=== PATIENT | female | born 1990 | race Caucasian/White ===

== ENCOUNTER 2019-07-10 10:04 | Emergency (ER) | payer OTHER ==
[~2019-07-10] VITALS: Ht 157.5 cm; Wt 56.8 kg
[2019-07-10] MEDS ORDERED: NS 1,000 ML IV ONE (10:15)
[2019-07-10 10:18] VITALS: BP 129/80
[2019-07-10 10:51] LABS: BASO # 0.1 10^3/uL (0.0-0.2); BASO % 0.5 % (0.0-1.0); EOS # 0.1 10^3/uL (0.0-0.5); EOS % 0.7 % (0.0-3.0); HEMATOCRIT 34.7 % (36.0-47.0); HEMOGLOBIN 11.9 g/dl (12.0-15.5); LYMPH # 1.8 10^3/uL (1.5-5.0); LYMPH % 14.7 % (24.0-44.0); MEAN CORPUSCULAR HEMOGLOBIN 32.3 pg (27.0-33.0); MEAN CORPUSCULAR HGB CONC 34.3 g/dl (32.0-36.5); MEAN CORPUSCULAR VOLUME 94.3 fl (80.0-96.0); MONO # 0.9 10^3/uL (0.0-0.8); MONO % 7.1 % (0.0-5.0); NEUTROPHILS # 9.3 10^3/uL (1.5-8.5); NEUTROPHILS % 75.6 % (36.0-66.0); PLATELET COUNT, AUTOMATED 300 10^3/uL (150-450); RED BLOOD COUNT 3.68 10^6/uL (4.00-5.40); WHITE BLOOD COUNT 12.3 10^3/uL (4.0-10.0)
[2019-07-10 11:22] LABS: ALBUMIN 3.1 GM/DL (3.2-5.2); ALT/SGPT 12 U/L (12-78); BILIRUBIN,TOTAL 0.2 MG/DL (0.2-1.0); BLOOD UREA NITROGEN 8 MG/DL (7-18); CALCIUM LEVEL 8.8 MG/DL (8.5-10.1); CARBON DIOXIDE LEVEL 24 MEQ/L (21-32); CHLORIDE LEVEL 108 MEQ/L (98-107); CREATININE FOR GFR 0.39 MG/DL (0.55-1.30); GLOMERULAR FILTRATION RATE > 60.0 (>60); GLUCOSE, FASTING 81 MG/DL (70-100); SODIUM LEVEL 138 MEQ/L (136-145); TOTAL PROTEIN 6.4 GM/DL (6.4-8.2)
[2019-07-10] MEDS ORDERED: PRENTAB9 PO (11:29)
[2019-07-10] MEDS ORDERED: TUMS750C5 PO (11:29)
[2019-07-10] MEDS ORDERED: ACET-683 PO (11:29)
--- NOTE | 2019-07-10 17:22 | ECGEPIP ---
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
== END 2019-07-10 11:24 | disposition admitted as inpatient to this hospital (09) ==
LOC: M ED 10:04 → EDBD 10:04 → M ED 11:24
DX: O26.893 Other specified pregnancy related conditions, third trimester (principal); R55 Syncope and collapse; O28.9 Unspecified abnormal findings on antenatal screening of mother; Z3A.28 28 weeks gestation of pregnancy; Z79.899 Other long term (current) drug therapy

== ENCOUNTER 2019-07-10 11:03 | Outpatient (CLI) | payer OTHER ==
[~2019-07-10] VITALS: Ht 154.9 cm; Wt 57.0 kg
[2019-07-10 11:20] VITALS: BP 110/66
[2019-07-10] MEDS ORDERED: PRENTAB9 PO (11:29)
[2019-07-10] MEDS ORDERED: ACET-683 PO (11:29)
[2019-07-10] MEDS ORDERED: TUMS750C5 PO (11:29)
[2019-07-10 12:33] VITALS: BP 114/66
[2019-07-10 13:01] VITALS: BP 107/59
--- NOTE | 2019-07-10 13:30 | IPNPDOC ---
Text Note Date of Service The patient was seen on 07/10/19. NOTE Triage Note Samantha is a 29yo with SIUP at 27w5d who presented to the ER via ambulance after having a near syncopal episode on . She notes walking up a set of stairs and at the top feeling lightheaded, vision went blurry and she felt hot, so she sat against a wall. Never lost consciousness. She received IV fluids in the ER and CBC/CMP were drawn which were grossly normal, an EKG was done which was also wnl. She as brought up to L&D for monitoring given her gestational age and the fact that when she was in the ER she endorsed not feeling as much movement as usual. By the time she was on L&D she was feeling good movement. No ctx. No LOF. No vaginal bleeding. No CP/SOB. Vitals wnl, afebrile General: WDWN, resting comfortably sitting up in bed Abdomen: soft, gravid, NTTP Extremities: no edema of BLE Cat I FHRT with mod jerald, +accels, -decels [place]: no ctx H/H 11.9/34.7 Assessment: Samantha is a 29yo with SIUP at 27w5d who presented to the ER via ambulance after having a near syncopal episode with reassuring assessment for her and fetus. Vitals wnl, benign exam. Normal CBC/CMP and EKG. Cat I FHRT. Patient feels much improved. Plan: -discharge to home -keep next routine OB appt at 32wk -encouraged excellent hydration and if patient feels lightheaded with activity or especially showering in the future, she needs to sit down and equilibrate prior to continuing what she is doing so that she doesn't have syncope -return precautions discussed MD LISA Chong Fishbone I+O VS, Antonietta I+O Vital Signs Date Time Temp Pulse Resp B/P (MAP) Pulse Ox O2 Delivery O2 Flow Rate FiO2 07/10/19 12:33 76 20 114/66 (82) 07/10/19 11:30 99 Room Air 07/10/19 11:19 99.3 Lashell Gilbert MD Jul 10, 2019 13:30
== END 2019-07-10 13:22 | disposition home or self-care (01) ==
LOC: M LDO 11:03
PROVIDERS: ATTEND Obstetrics & Gynecology
DX: O26.892 Other specified pregnancy related conditions, second trimester (principal); Z3A.27 27 weeks gestation of pregnancy; R55 Syncope and collapse; O36.8120 Decreased fetal movements, second trimester, not applicable or unspecified; Z79.899 Other long term (current) drug therapy

== ENCOUNTER 2019-09-26 15:19 | Inpatient (IN) | payer OTHER ==
[~2019-09-26] VITALS: Ht 152.4 cm; Wt 63.1 kg
[2019-09-26] VITALS (10 sets, daily range): BP systolic 120–178; BP diastolic 65–101
[~2019-09-26 15:19] MED LIST: ACET-683 PO; PRENTAB9 PO; TUMS750C5 PO
[2019-09-26] MEDS ORDERED: LACTATED RINGER'S 1000 ML IV STA (15:53)
[2019-09-26] MEDS ORDERED: LR 1,000 ML IV SCH (16:00)
[2019-09-26] MEDS ORDERED: BUTORPHANOL 2 MG/ML INJ (J0595) IV PRN (16:30)
[2019-09-26] MEDS ORDERED: diphenhydrAMINE 25MG CAP PO PRN (16:30)
[2019-09-26] MEDS ORDERED: PROMETHAZINE INJ 25 MG/ML VIAL (J2550) IV PRN (16:30)
[2019-09-26] MEDS ORDERED: CALCIUM CARBONATE 500 MG CHEW U/D PO PRN (16:30)
[2019-09-26] MEDS ORDERED: MOM 30ML SUSPENSION UDC PO PRN (16:30)
[2019-09-26] MEDS ORDERED: SIMETHICONE 80 MG CHEW TAB PO PRN (16:30)
[2019-09-26 16:35] LABS: BASO # 0.1 10^3/uL (0.0-0.2); BASO % 0.5 % (0.0-1.0); EOS % 0.3 % (0.0-3.0); HEMOGLOBIN 14.1 g/dl (12.0-15.5); LYMPH % 21.2 % (24.0-44.0); MEAN CORPUSCULAR HEMOGLOBIN 32.8 pg (27.0-33.0); MEAN CORPUSCULAR HGB CONC 35.3 g/dl (32.0-36.5); MONO # 0.9 10^3/uL (0.0-0.8); MONO % 6.5 % (0.0-5.0); NEUTROPHILS # 9.8 10^3/uL (1.5-8.5); NEUTROPHILS % 70.1 % (36.0-66.0); PLATELET COUNT, AUTOMATED 249 10^3/uL (150-450); WHITE BLOOD COUNT 13.9 10^3/uL (4.0-10.0)
--- NOTE | 2019-09-26 16:39 | HPEPDOC ---
Obstetrical History & Physical General Date of Admission September 26, 2019 at 15:49 History of Present Illness Patient is a 29yo at 38.6wks by LMP c/w 12wk US. C/o ctx q5min since 11am. No LOF or VB. Good FM. No headache or visual changes. Chief Complaint: Contractions, term Information Provided By: Patient Care Care: Good Care Dating Final EDC: October 04, 2019 Final EDC by: LMP Antepartum Course Height (inches): 61 Pre- weight (lbs.): 107 Admission Weight (lbs.): 141 Change in Weight (lbs.): 26 Past Medical History Past Obstetrical History : Past Obstetrical History: Multigravida Type of Delivery: Spontaneous Vaginal Del. 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 History: No pertinent history Past Medical History Medical History None Surgical History: [place] teeth Family History Significant Family History: No pertinent family hx Social History Marital Status: Family situation: Spouse/partner deployed Psychosocial History: No pertinent psych hx * Smoker: non-smoker Alcohol: Denies Drugs: denies Abuse Violence Screening Have you been hit/kicked/slapp: No Have you been sexually assault: No Imunizations Tdap status: current Influenza Status: current Allergies Coded Allergies: No Known Allergies (Unverified , 07/10/19) Medications Scheduled No.137/Iron/Folic Acd ( Vitamin Tablet) 1 Each Tablet, 1 TAB PO DAILY Scheduled PRN Acetaminophen (Acetaminophen) 500 Mg Tablet, 1 TAB PO Q6H PRN for DISCOMFORT Calcium Carbonate (Tums) 300 Mg Tab.chew, 2 TAB PO Q6HP PRN for INDIGESTION Physical Examination Physical Examination GENERAL: Alert and oriented times three. BREAST: . ABDOMEN: Gravid and non-tender to touch. FETUS: Is vertex (VTX) by sterile vaginal examination (SVE), fetus is about 3200gm by David. HEART RATE: Regular rate and rhythm. LUNGS: Clear to auscultation (CTA). EXTREMITIES: No edema. Laboratory Data 24H LABS Laboratory Tests 2 09/26/19 15:54: Serology Scanned Report Hepatitis B Testing Urine Culture: No Growth Pertinent Laboratoy Data Blood Type: O- RBC Antibody Screen: Negative HIV: Negative Hepatitis B: Negative Rapid Plasma Reagin: Nonreactive Rubella: Immune Varicella: Immune Chlamydia/Gonorrhea: Negative Group B Streptococcus: Negative Cystic Fibrosis: Negative Glucose Tolerance Test: 147 (80,167,146,100) Anatomy Ultrasound Ultrasound Date: May 16, 2019 Placenta Location: Anterior Normal Anatomy: Yes Placenta Previa: No Estimated Weight (grams): 300 Vaginal Examination Dilation: 8 cm Effacement: 100% Station: 0 Cervical Consistency: Soft Cervical Position: Middle Presentation: Cephalic presentation Assessment Heart Rate (FHR): 130 Variability: Moderate Accelerations: Present Decelerations: None Tocometer Contractions: Yes Frequency: every 2-5 min. Strength: palpated as moderate Multi-drug resistant Organism: No history of MDRO Assessment/Plan Assessment Patient is a 29yo at 38.6wks by LMP c/w 12wk US with ctx. Admit for labor and expect delivery by . Pain management per patient preference, which was discussed with her. I discussed risks of with patient of failure with section, distress, bleeding, infection, , vaginal or perineal or neighboring organ tear. Currently, fetus is reassuring. GBS is negative, no need for antibiotics. Plan Admit and orient. 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 Diet: Clear. Group B Streptococcus (GBS) negative. Labs and intravenous (IV) per unit protocol. Counseled on Pitocin augmentation only if neeeded. Lactated Ringers (LR): Bolus 500 mL, then at 125 mL/hr. Anticipate normal spontaneous delivery (). C-S as appropriate. Pain mgt per patient desires. Rebecca Taveras MD September 26, 2019 16:39
--- NOTE | 2019-09-26 17:11 | IPNPDOC ---
Text Note Date of Service The patient was seen on 09/26/19. NOTE Pt tolerating painful ctx. Some bloody show. VS WNL SVE 9/100/0 AROM clear FHT: category 1, 140s, reactive, no decels, ctx q2-3min A/P: Fetus reassuring. Expect fairly soon. VS,Fishbone, I+O VS, Fishbone, I+O Laboratory Tests 09/26/19 16:14 Rebecca Taveras MD September 26, 2019 17:11
[2019-09-26] MEDS ORDERED: OXYTOCIN DRIP 30 UNITS in IV 1 EA IV SCH ×2 (17:55→18:30)
[2019-09-26] MEDS ORDERED: METHYLERGONOVINE MALEATE 0.2 MG TAB PO PRN (18:00)
[2019-09-26] MEDS ORDERED: ANUSOL HC CREAM 30GM TOP PRN (18:00)
[2019-09-26] MEDS ORDERED: MEASLES,MUMPS,RUBELLA VACCINE INJ (MMR-II) (90707) SC SCH (18:00)
[2019-09-26] MEDS ORDERED: ONDANSETRON 4MG/2ML VIAL IV PRN (18:00)
[2019-09-26] MEDS ORDERED: RHOGAM 300 MCG (1500 IU) INJ (J2790) IM SCH (18:00)
[2019-09-26] MEDS ORDERED: DIBUCAINE 1% OINTMENT 30GM TOP PRN (18:00)
--- NOTE | 2019-09-26 18:02 | DNPDOC ---
[facility] Delivery Note Delivery Note DATE OF DELIVERY: 09/26/2019 PREDELIVERY DIAGNOSIS: 38-6/7 weeks' gestation and labor. POST DELIVERY DIAGNOSIS: Delivered. PROCEDURE: Spontaneous vaginal delivery. 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 Taveras ANESTHESIA: None. ESTIMATED BLOOD LOSS: 250 mL. FINDINGS: 6 pound 14 ounce 3110gm girl , Score 8/9, nuchal cord times 1. DELIVERY SUMMARY: Patient is a 29-year-old 3 now para 2 who was admitted to labor and delivery for active labor for 6hours. Patient AROM clear around 1700. Baby girl head was delivered without difficulty over intact perineum in YOSSI position at 1735. The nose and mouth were bulb suctioned. x1 tight nuchal cord was noted. The shoulders were then delivered through the NC without difficulty. Infant was handed on mother's belly. Cord was then clamped x2 and cut after pulsation. Pitocin bolus was started. Perineum and vagina was inspected and found to have no laceration. The placenta was then delivered at 1742 spontaneously intact. Cord had a 3 vessel cord. EBL was 250mL. The vagina and perineum were reinspected and no further lacerations were found and hemostasis was good. Fundus was firm. Patient tolerated delivery well. Rebecca Taveras MD September 26, 2019 18:00
[2019-09-26] MEDS ORDERED: OXYTOCIN INJ 10 UNITS/ML VIAL (J2590) As Ordered ONE (18:58)
[2019-09-26] MEDS: IBUPROFEN 800 MG TAB PO PRN (19:51)
[2019-09-26] MEDS: ACETAMINOPHEN 500 MG TAB PO PRN (19:51)
[2019-09-26] MEDS: DOCUSATE SODIUM 100 MG CAP PO SCH (21:11)
[2019-09-27] MEDS: ACETAMINOPHEN 500 MG TAB PO PRN ×2 (01:53→08:20)
[2019-09-27] MEDS: IBUPROFEN 800 MG TAB PO PRN ×3 (03:58→21:36)
[2019-09-27 06:00] VITALS: BP 117/58
[2019-09-27] MEDS: DOCUSATE SODIUM 100 MG CAP PO SCH ×2 (08:19→21:32)
[2019-09-27] MEDS: PRENATAL VITAMINS CHEWABLE TABLET PO SCH (08:19)
--- NOTE | 2019-09-27 10:09 | IPNPDOC ---
Progress Note Date of Service: September 27, 2019 Day#: 1 Progress Note SUBJECT: Patient is a 29-year-old 3 now Para 2 status post uncomplicated spontaneous vaginal delivery without laceration, doing well day # 1. She has been ambulating, voiding spontaneously without issue and tolerating regular diet. Breast feeding without issue. Reports lochia is like a normal period. Patient is ambulating well. Reports some cramping with . Denies any pain. OBJECTIVE: VITAL SIGNS: Within normal limits, afebrile. GENERAL: No acute distress HEENT: MMM BREAST: Nontender, no erythema CARDIOVASCULAR EXAMINATION: RRR RESPIRATORY EXAMINATION: Bilaterally clear ABDOMINAL EXAMINATION: Soft, appropriate tenderness, nondistended, fundus -2 PERINEUM: Intact, minimal lochia EXTREMITIES: no edema, nontender ASSESSMENT: Patient is a 29-year-old 3 now Para 2 status post uncomplicated spontaneous vaginal delivery without laceration, doing well day # 1. Vitals within normal limits, afebrile, hemodynamically stable with no evidence of infection. PLAN: 1. Continue care. 2. Tylenol and Motrin for pain. 3. Encourage breast feeding and ambulation. VS, I&O, 24H, Fishbone Laboratory Data 24H LABS Laboratory Tests 2 09/26/19 15:54: Serology Scanned Report Hepatitis B Testing 09/26/19 16:14: Immature Granulocyte % (Auto) 1.4, Neutrophils (%) (Auto) 70.1H, Lymphocytes (%) (Auto) 21.2L, Monocytes (%) (Auto) 6.5H, Eosinophils (%) (Auto) 0.3, Basophils (%) (Auto) 0.5, Neutrophils # (Auto) 9.8H, Lymphocytes # (Auto) 3.0, Monocytes # (Auto) 0.9H, Eosinophils # (Auto) 0.0, Basophils # (Auto) 0.1, Nucleated Red Blood Cells % (auto) 0.0, Syphilis Serology NONREACTIVE CBC/BMP Laboratory Tests 09/26/19 16:14 Rebecca Taveras MD September 26, 2019 18:04
[2019-09-27 18:00] VITALS: BP 120/67
[2019-09-28 06:40] VITALS: BP 118/70
--- NOTE | 2019-09-28 08:28 | IPNPDOC ---
Progress Note Date of Service: September 28, 2019 Day#: 2 Progress Note SUBJECT: Samantha is a 29yo G3 now P2012 s/p uncomplicated with intact pe rineum at 38+6wks on [id number] at 1735. She delivered a viable female , 6lbs 14oz, 3110g. She has been ambulating, voiding spontaneously without issue and tolerating regular diet. Breast feeding with concerns about adequate latch. Reports lochia is light. OBJECTIVE: VITAL SIGNS: Within normal limits, afebrile. Alert and oriented times three. Observed nonlabored breathing. Abdomen: Fundus firm at U-2. Scant lochia. ASSESSMENT: PP Day #1, normal involution, stable and progressing well. with some latch concerns. Infant had just finished feeding and was asleep during my assessment, but I did discuss this concern with her nurse and requested that she assess latch the next time her infant feeds. Recommend close follow up with (whichever service she desire to see). PLAN: 1. Discharge to home today. 2. Tylenol and Motrin for pain. 3. Encourage breast feeding and ambulation. 4. Declined Control as spouse is deployed. 5. Routine PP visit in 6 weeks in clinic. 6. Discussed return precautions at length. VS, I&O, 24H, Fishbone Vital Signs/I&O Vital Signs Date Time Temp Pulse Resp B/P (MAP) Pulse Ox O2 Delivery O2 Flow Rate FiO2 09/28/19 06:40 98.4 70 16 118/70 (86) 09/27/19 18:00 97 Room Air BILLY WEBER CNM September 28, 2019 08:24
[2019-09-28] MEDS ORDERED: DIBU10OI TOP (08:30)
[2019-09-28] MEDS ORDERED: IBUP80TA PO (08:30)
[2019-09-28] MEDS ORDERED: ACET-683 PO (08:30)
[2019-09-28] MEDS ORDERED: DOCU100C16 PO (08:30)
--- NOTE | 2019-09-28 08:37 | OBDS ---
[facility] Obstetrical Discharge Sum. Obstetrical Discharge Summary Date: September 28, 2019 Time: 08:34 : 3 Term: 2 Pre-term: 0 Abortions: 1 Livin VDRL: Non-Reactive Rubella: Immune Labor Active labor, uncomplicated. Delivery , uncomplicated. Sex: Female Infant Weight: pounds (6), ounces (14), grams (3110) A/P, Post Course List any complications Admission diagnosis: Active Labor, Term Discharge diagnosis: Active Labor, Term Condition at Discharge: Stable Discharge Instructions: Home Activity: Ad latisha with pelvic rest Diet: Regular Medications: As received during 36wk visit Follow-up: 6wks Other: None HOSPITAL COURSE: Patient was admitted for active labor. She had an uncomplicated without lacerations. Uncomplicated PP course and safe for discharge. BILLY WEBER CNM September 28, 2019 08:35
[2019-09-28] MEDS: DOCUSATE SODIUM 100 MG CAP PO SCH (09:06)
[2019-09-28] MEDS: PRENATAL VITAMINS CHEWABLE TABLET PO SCH (09:08)
[2019-09-28] MEDS: IBUPROFEN 800 MG TAB PO PRN (09:08)
== END 2019-09-28 12:35 | disposition home or self-care (01) | DRG 807 ==
LOC: M LDO 15:19 → M LDI 15:49 → M OBS 20:23
PROVIDERS: ADMIT Advanced Practice Midwife; ATTEND Advanced Practice Midwife
PROC: 10E0XZZ Delivery of Products of Conception, External Approach (ICD-10-PCS; principal; 2019-09-26)
PROC: 10907ZC Drainage of Amniotic Fluid, Therapeutic from Products of Conception, Via Natural or Artificial Opening (ICD-10-PCS; 2019-09-26)
DX: O69.89X0 Labor and delivery complicated by other cord complications, not applicable or unspecified (principal); Z37.0 Single live birth; Z3A.38 38 weeks gestation of pregnancy

== ENCOUNTER → 2020-07-05 | Outpatient (CLI) | payer SELFPAY ==
[~2020-07-05] MED LIST changes: +DIBU10OI TOP; +DOCU100C16 PO; +IBUP80TA PO
== END ==
LOC: M LABSMTC 14:10
PROVIDERS: ATTEND Pediatrics
DX: Z11.52 Encounter for screening for COVID-19 (principal)

== ENCOUNTER → 2021-03-21 | Outpatient (REF) | payer OTHER ==
[~2021-03-21] MED LIST changes: -DIBU10OI TOP; +DIBU28OI2 TOP
[2021-03-22 12:13] LABS: GC DNA AMPLIFICATION NEGATIVE (NEGATIVE)
== END ==
LOC: M WUC 10:15
PROVIDERS: ATTEND Physician Assistant
DX: R10.2 Pelvic and perineal pain (principal)

== ENCOUNTER → 2021-03-22 | Outpatient (CLI) | payer OTHER ==
--- NOTE | 2021-03-22 15:46 | REP ---
INDICATION: PELVIC PAIN COMPARISON: None. TECHNIQUE: Transabdominal pelvic ultrasound followed by transvaginal examination for better evaluation of the endometrium and adnexa with color Doppler evaluation of the ovaries. FINDINGS: Bladder is collapsed. Heterogeneous retroverted uterus measures 7.3 x 4.5 x 6.3 cm. The endometrial complex measures 10.6 mm thickness. No discrete uterine or endometrial abnormalities are appreciated. Bilateral ovaries are normal in vascularity without evidence for torsion. Right ovary measures 3.5 x 1.6 x 1.9 cm; R I = 0.51. Left ovary measures 5.1 x 2.2 x 2.6 cm and includes 2.4 x 1.5 x 1.9 cm complex thick walled cyst; R I = 0.52. Moderate amount of pelvic free fluid IMPRESSION: Relatively normal uterus and right ovary. Possible involuting hemorrhagic left ovarian cyst. Correlation and short-term follow-up may be warranted to confirm resolution. <Electronically signed by Ben Chaves > 03/22/21 [id number]
== END ==
LOC: M RAD 15:00
PROVIDERS: ATTEND Physician Assistant
DX: R10.2 Pelvic and perineal pain (principal)

== ENCOUNTER → 2022-07-26 | Outpatient (CLI) | payer OTHER | LOC: M WHC 09:55 | PROVIDERS: ATTEND Nurse Practitioner Family | DX: N63.22 Unspecified lump in the left breast, upper inner quadrant (principal) | CPT/HCPCS: 76642; 77066; G0279 ==

== ENCOUNTER → 2022-08-17 | Outpatient (REF) | payer OTHER ==
[2022-08-17 14:38] LABS: BASO # 0.1 10^3/uL (0.0-0.2); BASO % 0.6 % (0.0-1.0); EOS # 0.1 10^3/uL (0.0-0.5); HEMATOCRIT 38.9 % (36.0-47.0); LYMPH # 2.4 10^3/uL (1.5-5.0); LYMPH % 30.6 % (24.0-44.0); MEAN CORPUSCULAR HEMOGLOBIN 31.5 pg (27.0-33.0); MEAN CORPUSCULAR HGB CONC 33.4 g/dl (32.0-36.5); MEAN CORPUSCULAR VOLUME 94.2 fl (80.0-96.0); MONO # 0.6 10^3/uL (0.0-0.8); MONO % 7.7 % (2.0-8.0); NEUTROPHILS # 4.6 10^3/uL (1.5-8.5); NEUTROPHILS % 59.8 % (36.0-66.0); PLATELET COUNT, AUTOMATED 379 10^3/uL (150-450); RED BLOOD COUNT 4.13 10^6/uL (4.00-5.40); WHITE BLOOD COUNT 7.8 10^3/uL (4.0-10.0)
[2022-08-17 14:52] LABS: HEMOGLOBIN A1c 4.9 % (4.0-6.0)
[2022-08-17 15:02] LABS: TOTAL 25(OH) VITAMIN D 38.2 NG/ML (20.0-100.0)
[2022-08-17 15:49] LABS: ALBUMIN 4.1 G/DL (3.2-5.2); ALKALINE PHOSPHATASE 54 U/L (46-116); ALT/SGPT < 9 U/L (7.0-40); AST/SGOT 14 U/L (<34); BILIRUBIN,TOTAL 0.9 MG/DL (0.3-1.2); BLOOD UREA NITROGEN 9 MG/DL (9-23); CARBON DIOXIDE LEVEL 27 MMOL/L (20-31); CHLORIDE LEVEL 105 MMOL/L (98-107); CHOLESTEROL LEVEL 125 MG/DL (<200); CHOLESTEROL RISK RATIO 1.87 (<5); CREATININE FOR GFR 0.57 MG/DL (0.55-1.30); GLOMERULAR FILTRATION RATE > 60.0 (>60); GLUCOSE, FASTING 92 MG/DL (60-100); HDL CHOLESTEROL 66.7 MG/DL (>40); LDL CHOLESTEROL 50.9 MG/DL (<100); NON-HDL-C 58.3 MG/DL; POTASSIUM SERUM 4.4 MMOL/L (3.5-5.1); SODIUM LEVEL 139 MMOL/L (136-145); TOTAL PROTEIN 6.5 G/DL (5.7-8.2); TRIGLYCERIDES LEVEL 37 MG/DL (<150)
== END ==
LOC: M LAB REF 12:11
PROVIDERS: ATTEND Nurse Practitioner Family
DX: Z13.228 Encounter for screening for other metabolic disorders (principal)

== ENCOUNTER → 2022-10-06 | Outpatient (CLI) | payer OTHER ==
[2022-10-06 13:41] LABS: MEAN CORPUSCULAR HEMOGLOBIN 31.3 pg (27.0-33.0); MEAN CORPUSCULAR HGB CONC 34.2 g/dl (32.0-36.5); MEAN CORPUSCULAR VOLUME 91.6 fl (80.0-96.0); PLATELET COUNT, AUTOMATED 322 10^3/uL (150-450); RED BLOOD COUNT 4.15 10^6/uL (4.00-5.40); WHITE BLOOD COUNT 9.7 10^3/uL (4.0-10.0)
[2022-10-06 14:41] LABS: HIV 1&2 SCREEN NEGATIVE (NEGATIVE)
[2022-10-06 14:49] LABS: HEPATITIS C VIRUS ABY INDEX 0.1 INDEX (<0.8)
[2022-10-06 15:04] LABS: GC DNA AMPLIFICATION NEGATIVE (NEGATIVE)
== END ==
LOC: M PLALAB 09:10
PROVIDERS: ATTEND Specialist
DX: Z34.81 Encounter for supervision of other normal pregnancy, first trimester (principal)

== ENCOUNTER → 2022-12-13 | Outpatient (CLI) | payer OTHER | LOC: M WHC 08:05 | PROVIDERS: ATTEND Advanced Practice Midwife | DX: Z34.92 Encounter for supervision of normal pregnancy, unspecified, second trimester (principal) ==

== ENCOUNTER → 2023-01-12 | Outpatient (CLI) | payer OTHER | LOC: M WHC 08:35 | PROVIDERS: ATTEND Specialist | DX: Z34.82 Encounter for supervision of other normal pregnancy, second trimester (principal) ==

== ENCOUNTER → 2023-01-18 | Outpatient (CLI) | payer OTHER | LOC: M WHC 10:42 | PROVIDERS: ATTEND Nurse Practitioner Family | DX: R92.8 Other abnormal and inconclusive findings on diagnostic imaging of breast (principal) ==

== ENCOUNTER → 2023-01-23 | Outpatient (CLI) | payer OTHER ==
[2023-01-23 14:53] LABS: HEMOGLOBIN 11.9 g/dl (12.0-15.5); MEAN CORPUSCULAR HEMOGLOBIN 31.9 pg (27.0-33.0); MEAN CORPUSCULAR HGB CONC 33.1 g/dl (32.0-36.5); MEAN CORPUSCULAR VOLUME 96.5 fl (80.0-96.0); PLATELET COUNT, AUTOMATED 306 10^3/uL (150-450); RED BLOOD COUNT 3.73 10^6/uL (4.00-5.40); WHITE BLOOD COUNT 10.6 10^3/uL (4.0-10.0)
[2023-01-23 15:50] LABS: GC DNA AMPLIFICATION NEGATIVE (NEGATIVE)
== END ==
LOC: M PLALAB 08:35
PROVIDERS: ATTEND Specialist
DX: Z36.9 Encounter for antenatal screening, unspecified (principal)
CPT/HCPCS: 36415; 82950; 85027; 86850; 86900; 86901; 87810; 87850; J2790

== ENCOUNTER → 2023-02-23 | Outpatient (REF) | payer OTHER | LOC: M PLALAB 14:48 | PROVIDERS: ATTEND Obstetrics & Gynecology | DX: O23.599 Infection of other part of genital tract in pregnancy, unspecified trimester (principal) ==

== ENCOUNTER → 2023-04-11 | Outpatient (REF) | payer OTHER | LOC: M PLALAB 09:34 | PROVIDERS: ATTEND Obstetrics & Gynecology | DX: Z36.85 Encounter for antenatal screening for Streptococcus B (principal); Z3A.36 36 weeks gestation of pregnancy ==

== ENCOUNTER 2023-05-07 09:39 | Inpatient (IN) | payer OTHER ==
[~2023-05-07] VITALS: Ht 154.9 cm; Wt 69.3 kg
[2023-05-07] VITALS (22 sets, daily range): BP systolic 103–201; BP diastolic 59–101; O2SAT 97
[2023-05-07] MEDS ORDERED: PENICILLIN G POTASSIUM 5 MU IV 5 MU in D5W MINI-BAG PLUS 100 ML IV STA (10:27)
[2023-05-07] MEDS ORDERED: METHYLERGONOVINE MALEATE 0.2MG/ML 1ML VIAL IM PRN (10:30)
[2023-05-07] MEDS ORDERED: OXYTOCIN DRIP 30 UNITS in IV 1 EA IV PRN ×4 (10:30)
[2023-05-07] MEDS ORDERED: CARBOPROST TROMETHAMINE 250 MCG/ML AMP IM PRN (10:30)
[2023-05-07] MEDS ORDERED: LIDOCAINE 1% MDV 20ML VIAL INFIL PRN (10:30)
[2023-05-07] MEDS ORDERED: TRANEXAMIC ACID INJection 1,000 MG in NS 100 ML IV PRN (10:30)
[2023-05-07] MEDS ORDERED: OXYTOCIN INJ 10UNITS/ML 1ML VIAL IM PRN (10:30)
[2023-05-07] MEDS: LR 1,000 ML IV SCH ×2 (10:59→18:30)
[2023-05-07 11:18] LABS: HEMATOCRIT 38.4 % (36.0-47.0); HEMOGLOBIN 13.5 g/dl (12.0-15.5); MEAN CORPUSCULAR HEMOGLOBIN 32.5 pg (27.0-33.0); MEAN CORPUSCULAR HGB CONC 35.2 g/dl (32.0-36.5); MEAN CORPUSCULAR VOLUME 92.5 fl (80.0-96.0); PLATELET COUNT, AUTOMATED 407 10^3/uL (150-450); RED BLOOD COUNT 4.15 10^6/uL (4.00-5.40); WHITE BLOOD COUNT 13.5 10^3/uL (4.0-10.0)
[2023-05-07] MEDS ORDERED: TUMS750C5 PO (11:58)
[2023-05-07] MEDS ORDERED: HOME MED LIST COMPLETE! XX SCH (12:00)
[2023-05-07] MEDS ORDERED: NALOXONE INJ 0.4MG/1ML VIAL IV PRN (12:30)
[2023-05-07] MEDS ORDERED: EPIDURAL/PCA KEYS XX PRN (12:30)
[2023-05-07] MEDS ORDERED: LR 500 ML IV PRN (12:30)
[2023-05-07] MEDS ORDERED: diphenhydrAMINE 50MG/ML VIAL IV PRN (12:30)
[2023-05-07] MEDS ORDERED: ONDANSETRON 4MG 2ML VIAL IV PRN (12:30)
[2023-05-07] MEDS ORDERED: ePHEDrine SULFATE 25 MG/5 ML(5MG/ML) SYRINGE IVP PRN (12:30)
[2023-05-07] MEDS ORDERED: FENTANYL/ROPIVACAINE/NACL BAG 100 ML EPIDURAL SCH (12:30)
[2023-05-07] MEDS ORDERED: REFLB XX ONE (14:47)
[2023-05-07] MEDS: PEN G POT 3,000,000 UNIT/50 ML 3,000,000 UNIT in IV 1 EA IV SCH ×2 (15:01→19:00)
[2023-05-07] MEDS ORDERED: OXYTOCIN DRIP 30 UNITS in IV 1 EA IV SCH (16:50)
[2023-05-07] MEDS ORDERED: DOCUSATE SODIUM 100MG CAPSULE PO PRN (19:15)
[2023-05-07] MEDS ORDERED: METHYLERGONOVINE MALEATE 0.2 MG TAB PO PRN (19:15)
[2023-05-07] MEDS ORDERED: RHOGAM 300MCG (1500IU) INJ IM SCH (19:15)
[2023-05-07] MEDS ORDERED: IBUPROFEN 600MG TAB PO PRN (19:15)
[2023-05-07] MEDS ORDERED: ACETAMINOPHEN TAB 650MG DOSE (2X325MG) PO PRN (19:15)
[2023-05-07] MEDS: ACETAMINOPHEN 500 MG TAB PO PRN (20:08)
[2023-05-07] MEDS: IBUPROFEN 800 MG TAB PO PRN (23:24)
[2023-05-08] MEDS: ACETAMINOPHEN 500 MG TAB PO PRN ×3 (06:05→18:47)
[2023-05-08] MEDS: DIBUCAINE 1% OINTMENT 30GM TOP PRN (06:09)
[2023-05-08 06:11] VITALS: BP 116/61; O2SAT 99
[2023-05-08] MEDS: IBUPROFEN 800 MG TAB PO PRN ×2 (06:35→16:20)
[2023-05-08] MEDS: PRENATAL VITAMINS CHEWABLE TABLET PO SCH (09:06)
[2023-05-08 18:50] VITALS: BP 119/67; O2SAT 98
[2023-05-08] MEDS ORDERED: oxyCODONE 5MG TAB PO ONE (19:00)
[2023-05-09] MEDS: ACETAMINOPHEN 500 MG TAB PO PRN (05:30)
[2023-05-09 06:00] VITALS: BP 123/59; O2SAT 98
[2023-05-09] MEDS: IBUPROFEN 800 MG TAB PO PRN (07:21)
[2023-05-09] MEDS: PRENATAL VITAMINS CHEWABLE TABLET PO SCH (07:21)
[2023-05-09] MEDS ORDERED: MEASLES,MUMPS,RUBELLA VACCINE INJ (MMR-II) SC.IMMUN ONE (09:00)
[2023-05-09] MEDS: DIBUCAINE 1% OINTMENT 30GM TOP PRN (09:07)
[2023-05-09] MEDS ORDERED: COLA100C5 PO (10:55)
== END 2023-05-09 12:43 | disposition home or self-care (01) | DRG 807 ==
LOC: M LDO 09:39 → M LDI 10:27 → M OBS 21:23
PROVIDERS: ADMIT Advanced Practice Midwife; ATTEND Advanced Practice Midwife
PROC: 10E0XZZ Delivery of Products of Conception, External Approach (ICD-10-PCS; principal; 2023-05-07)
PROC: 10907ZC Drainage of Amniotic Fluid, Therapeutic from Products of Conception, Via Natural or Artificial Opening (ICD-10-PCS; 2023-05-07)
DX: O48.0 Post-term pregnancy (principal); Z37.0 Single live birth; Z3A.40 40 weeks gestation of pregnancy; O99.824 Streptococcus B carrier state complicating childbirth

== ENCOUNTER → 2023-09-12 | Outpatient (REF) | payer OTHER ==
[~2023-09-12] MED LIST changes: +COLA100C5 PO
[2023-09-12 15:33] LABS: BASO # 0.1 10^3/uL (0.0-0.2); BASO % 0.8 % (0.0-1.0); EOS # 0.1 10^3/uL (0.0-0.5); EOS % 1.1 % (0.0-3.0); HEMATOCRIT 41.3 % (36.0-47.0); HEMOGLOBIN 13.6 g/dl (12.0-15.5); LYMPH # 2.7 10^3/uL (1.5-5.0); LYMPH % 40.6 % (24.0-44.0); MEAN CORPUSCULAR HEMOGLOBIN 31.1 pg (27.0-33.0); MEAN CORPUSCULAR HGB CONC 32.9 g/dl (32.0-36.5); MEAN CORPUSCULAR VOLUME 94.5 fl (80.0-96.0); MONO # 0.5 10^3/uL (0.0-0.8); MONO % 7.9 % (2.0-8.0); NEUTROPHILS # 3.2 10^3/uL (1.5-8.5); NEUTROPHILS % 49.4 % (36.0-66.0); PLATELET COUNT, AUTOMATED 353 10^3/uL (150-450); RED BLOOD COUNT 4.37 10^6/uL (4.00-5.40); WHITE BLOOD COUNT 6.6 10^3/uL (4.0-10.0)
[2023-09-12 15:59] LABS: ALBUMIN 4.5 G/DL (3.2-5.2); ALKALINE PHOSPHATASE 103 U/L (46-116); ALT/SGPT 13 U/L (7.0-40); AST/SGOT 16 U/L (<34); BILIRUBIN,TOTAL 0.8 MG/DL (0.3-1.2); BLOOD UREA NITROGEN 13 MG/DL (9-23); CALCIUM LEVEL 9.4 MG/DL (8.5-10.1); CARBON DIOXIDE LEVEL 26 MMOL/L (20-31); CHLORIDE LEVEL 106 MMOL/L (98-107); CHOLESTEROL LEVEL 140 MG/DL (<200); CHOLESTEROL RISK RATIO 2.06 (<5); CREATININE FOR GFR 0.66 MG/DL (0.55-1.30); GLOMERULAR FILTRATION RATE > 60.0 (>60); GLUCOSE, FASTING 87 MG/DL (60-100); HDL CHOLESTEROL 67.7 MG/DL (>40); LDL CHOLESTEROL 66.7 MG/DL (<100); NON-HDL-C 72.3 MG/DL; POTASSIUM SERUM 4.6 MMOL/L (3.5-5.1); SODIUM LEVEL 139 MMOL/L (136-145); THYROID STIMULATING HORMONE 1.281 uIU/ML (0.55-4.78); TOTAL PROTEIN 7.1 G/DL (5.7-8.2); TRIGLYCERIDES LEVEL 28 MG/DL (<150)
[2023-09-12 16:00] LABS: TOTAL 25(OH) VITAMIN D 29.8 NG/ML (20.0-100.0)
== END ==
LOC: M LAB REF 13:10
PROVIDERS: ATTEND Nurse Practitioner Family
DX: Z39.2 Encounter for routine postpartum follow-up (principal); Z13.220 Encounter for screening for lipoid disorders; Z13.1 Encounter for screening for diabetes mellitus; E55.9 Vitamin D deficiency, unspecified

== ENCOUNTER → 2025-01-09 | Outpatient (REF) | payer OTHER ==
[2025-01-09 13:12] LABS: FREE T4 1.21 NG/DL (0.89-1.76)
== END ==
LOC: M LAB REF 12:29
PROVIDERS: ATTEND Physician Assistant
DX: R79.89 Other specified abnormal findings of blood chemistry (principal)

== ENCOUNTER → 2025-02-06 | Outpatient (REF) | payer OTHER ==
[2025-02-06 16:42] LABS: FREE T4 1.09 NG/DL (0.89-1.76); TOTAL T3 108.6 NG/DL (60.0-181.0)
== END ==
LOC: M LAB REF 16:10
PROVIDERS: ATTEND Nurse Practitioner Family
DX: E05.90 Thyrotoxicosis, unspecified without thyrotoxic crisis or storm (principal)

== ENCOUNTER → 2025-03-02 | Outpatient (CLI) | payer OTHER | LOC: M RAD 10:33 | PROVIDERS: ATTEND Nurse Practitioner Family | DX: E05.90 Thyrotoxicosis, unspecified without thyrotoxic crisis or storm (principal) ==

== ENCOUNTER → 2025-04-20 | Outpatient (REF) | payer OTHER ==
[2025-04-22 13:37] LABS: HPV APTIMA Not Detected (Not Detected)
== END ==
LOC: M SFHCWAGY 16:49
PROVIDERS: ATTEND Advanced Practice Midwife
DX: Z12.4 Encounter for screening for malignant neoplasm of cervix (principal)
CPT/HCPCS: 87624; G0123

== ENCOUNTER → 2025-04-20 | Outpatient (CLI) | payer OTHER | LOC: M WHC 15:07 | PROVIDERS: ATTEND Advanced Practice Midwife | DX: Z12.31 Encounter for screening mammogram for malignant neoplasm of breast (principal) ==

== ENCOUNTER → 2025-04-22 | Outpatient (CLI) | payer OTHER | LOC: M WHC 09:04 | PROVIDERS: ATTEND Advanced Practice Midwife | DX: Z12.31 Encounter for screening mammogram for malignant neoplasm of breast (principal); Z53.9 Procedure and treatment not carried out, unspecified reason ==

== ENCOUNTER → 2025-04-24 | Outpatient (CLI) | payer OTHER | LOC: M PLALAB 08:46 | PROVIDERS: ATTEND Advanced Practice Midwife | DX: Z12.39 Encounter for other screening for malignant neoplasm of breast (principal); Z80.3 Family history of malignant neoplasm of breast ==

== ENCOUNTER → 2025-04-27 | Outpatient (CLI) | payer OTHER | LOC: M WHC 07:31 | PROVIDERS: ATTEND Advanced Practice Midwife | DX: Z12.31 Encounter for screening mammogram for malignant neoplasm of breast (principal) ==